=== PATIENT | male | born 2000 ===

== ENCOUNTER 2024-10-02 23:52 | Inpatient (IN) | payer OTHER ==
[~2024-10-02] VITALS: Ht 167.6 cm; Wt 86.9 kg
[2024-10-03 01:12] LABS: BASOPHILS % (AUTO) 0.7 % (0.0-2.0); EOSINOPHILS % (AUTO) 1.3 % (1.0-6.0); HEMATOCRIT 43.9 % (41-53); HEMOGLOBIN 15.4 g/dL (13.5-17.5); LYMPHOCYTES # (AUTO) 2.1 K/uL (1.0-4.8); LYMPHOCYTES % (AUTO) 26.4 % (22.0-44.0); MEAN CORPUSCULAR HEMOGLOBIN 30.5 pg (26.0-34.0); MEAN CORPUSCULAR HGB CONC 35.1 G/dL (31.0-37.0); MEAN CORPUSCULAR VOLUME 87 fL (80-100); MONOCYTES # (AUTO) 0.5 K/uL (0.1-1.0); MONOCYTES % (AUTO) 6.4 % (2.0-9.0); NEUTROPHILS # (AUTO) 5.2 K/uL (1.8-7.7); NEUTROPHILS % (AUTO) 65.2 % (40.0-70.0); PLATELET COUNT (AUTO) 246 K/uL (150-450); RED BLOOD CELL COUNT(AUTO) 5.04 MIL/uL (4.50-5.90); RED CELL DISTRIBUTION WIDTH 12.7 % (11.5-14.5)
[2024-10-03 01:21] LABS: ANION GAP 10 mmol/L (8-16); CALCIUM, TOTAL 8.9 mg/dL (8.8-10.5); CARBON DIOXIDE 29 mmol/L (22-29); CHLORIDE 101 mmol/L (98-107); CREATININE 1.04 mg/dL (0.60-1.30); GLOMERULAR FILTR. RATE CALC > 60 mL/min (>60); GLUCOSE,RANDOM 94 mg/dL (70-110); POTASSIUM 4.2 mmol/L (3.5-5.1); SODIUM SERUM 140 mmol/L (136-145); UREA NITROGEN, BLOOD 16 mg/dL (7-18)
[2024-10-03 01:23] LABS: ALCOHOL, BLOOD (SERUM) < 3 mg/dL (0-10)
[2024-10-03] MEDS ORDERED: ONDANSETRON HCL 4 MG/2 ML VIAL IVP PRN (02:15)
[2024-10-03] MEDS ORDERED: HydrOXYzine HCL 25 MG TABLET PO PRN (02:15)
[2024-10-03] MEDS ORDERED: ACETAMINOPHEN 325 MG TABLET PO PRN (02:15)
[2024-10-03 03:09] VITALS: BP 117/65; PULSE 56; RESP 18; TEMP 98.3; O2SAT 100
[2024-10-03 08:27] VITALS: BP 109/68; PULSE 59; RESP 18; TEMP 98.2; O2SAT 100
[2024-10-03] MEDS: HEPARIN SODIUM,PORCINE 5,000 UNITS/ML VIAL SQ SCH (08:57)
[2024-10-03] MEDS: DOCUSATE SODIUM 100 MG CAPSULE PO SCH (08:58)
[2024-10-03] MEDS: KETOROLAC TROMETHAMINE 15 MG/ML VIAL IVP PRN (08:59)
[2024-10-03 16:37] LABS: ALCOHOL, URINE DRUG SCREEN NEGATIVE (NEGATIVE); AMPHET/METH SCREEN,URINE POSITIVE (NEGATIVE); BARBITURATE SCREEN, URINE NEGATIVE (NEGATIVE); BENZODIAZEPINES SCREEN,URINE NEGATIVE (NEGATIVE); CANNABINOID SCREEN,URINE NEGATIVE (NEGATIVE); COCAINE SCREEN,URINE NEGATIVE (NEGATIVE); METHADONE SCREEN, URINE NEGATIVE (NEGATIVE); OPIATE SCREEN,URINE NEGATIVE (NEGATIVE); PHENCYCLIDINE SCREEN,URINE NEGATIVE (NEGATIVE)
[2024-10-03 20:35] VITALS: BP 110/54; PULSE 61; RESP 18; TEMP 98.1; O2SAT 97
[2024-10-04 05:10] VITALS: BP 105/58; PULSE 61; RESP 19; TEMP 98; O2SAT 100
[2024-10-04 07:34] LABS: BASOPHILS % (AUTO) 0.5 % (0.0-2.0); HEMATOCRIT 40.1 % (41-53); HEMOGLOBIN 13.9 g/dL (13.5-17.5); LYMPHOCYTES # (AUTO) 2.9 K/uL (1.0-4.8); LYMPHOCYTES % (AUTO) 44.8 % (22.0-44.0); MEAN CORPUSCULAR HEMOGLOBIN 29.8 pg (26.0-34.0); MEAN CORPUSCULAR HGB CONC 34.6 G/dL (31.0-37.0); MEAN CORPUSCULAR VOLUME 86 fL (80-100); MONOCYTES # (AUTO) 0.5 K/uL (0.1-1.0); MONOCYTES % (AUTO) 7.6 % (2.0-9.0); NEUTROPHILS # (AUTO) 2.9 K/uL (1.8-7.7); NEUTROPHILS % (AUTO) 44.1 % (40.0-70.0); PLATELET COUNT (AUTO) 202 K/uL (150-450); RED BLOOD CELL COUNT(AUTO) 4.65 MIL/uL (4.50-5.90); RED CELL DISTRIBUTION WIDTH 12.2 % (11.5-14.5); WHITE BLOOD COUNT (AUTO) 6.6 K/uL (4.5-11.0)
[2024-10-04 07:43] LABS: ANION GAP 4 mmol/L (8-16); CALCIUM, TOTAL 8.3 mg/dL (8.8-10.5); CARBON DIOXIDE 32 mmol/L (22-29); CHLORIDE 105 mmol/L (98-107); CREATININE 0.92 mg/dL (0.60-1.30); GLOMERULAR FILTR. RATE CALC > 60 mL/min (>60); GLUCOSE,RANDOM 84 mg/dL (70-110); POTASSIUM 4.1 mmol/L (3.5-5.1); SODIUM SERUM 141 mmol/L (136-145); UREA NITROGEN, BLOOD 17 mg/dL (7-18)
[2024-10-04 08:04] VITALS: BP 101/50; PULSE 53; RESP 18; TEMP 98.4; O2SAT 100
[2024-10-04] MEDS: HydrOXYzine PAMOATE 25 MG CAPSULE PO PRN (08:24)
[2024-10-04] MEDS ORDERED: METOCLOPRAMIDE HCL 5 MG/ML 2 ML VIAL IVP PRN (11:45)
[2024-10-04] MEDS ORDERED: LOPERAMIDE HCL 2 MG CAPSULE PO PRN (11:45)
[2024-10-04] MEDS ORDERED: ACETAMINOPHEN 325 MG TABLET PO PRN (17:15)
[2024-10-04 19:30] VITALS: BP 116/51; PULSE 62; RESP 18; TEMP 98.3; O2SAT 99
[2024-10-04] MEDS: TEMAZEPAM 15 MG CAPSULE PO SCH (20:17)
[2024-10-05 04:37] VITALS: BP 99/60; PULSE 56; RESP 18; TEMP 98.3; O2SAT 99
[2024-10-05 07:40] VITALS: BP 106/51; PULSE 54; RESP 18; TEMP 98.3; O2SAT 99
[2024-10-05 15:44] VITALS: BP 107/53; PULSE 51; RESP 18; TEMP 97.9; O2SAT 99
[2024-10-05 20:25] VITALS: BP 111/51; PULSE 61; RESP 18; TEMP 97.8; O2SAT 96
[2024-10-06] MEDS: LORazepam 2 MG/ML VIAL IVP PRN (02:27)
[2024-10-06 04:50] VITALS: BP 118/53; PULSE 58; RESP 18; TEMP 98.3; O2SAT 99
[2024-10-06 08:18] VITALS: BP 117/64; PULSE 53; RESP 18; TEMP 98.6; O2SAT 99
[2024-10-06 17:12] VITALS: BP 118/64; PULSE 66; RESP 16; TEMP 98.4; O2SAT 100
[2024-10-06 20:22] VITALS: BP 131/71; PULSE 71; RESP 17; TEMP 98.3; O2SAT 100
[2024-10-07 04:53] VITALS: BP 108/58; PULSE 61; RESP 18; TEMP 98.4; O2SAT 96
[2024-10-07 08:09] VITALS: BP 127/82; PULSE 64; RESP 18; TEMP 98.2; O2SAT 100
[2024-10-07] MEDS: DICYCLOMINE HCL 10 MG CAPSULE PO PRN (09:24)
[2024-10-07] MEDS ORDERED: TEMA15CA PO (10:59)
[2024-10-07] MEDS ORDERED: ACET-2247 PO (11:00)
[2024-10-07] MEDS ORDERED: HYDR-4527 PO (11:01)
== END 2024-10-07 19:44 | DRG 897 ==
LOC: EMS 23:57 → EDH 10-03 02:25 → 6S 10-03 03:07
PROVIDERS: ADMIT Internal Medicine; ATTEND Internal Medicine
DX: F11.93 Opioid use, unspecified with withdrawal (principal); F15.10 Other stimulant abuse, uncomplicated; F10.10 Alcohol abuse, uncomplicated; F17.200 Nicotine dependence, unspecified, uncomplicated; F41.1 Generalized anxiety disorder; Z90.49 Acquired absence of other specified parts of digestive tract
CPT/HCPCS: 80048; 80307; 83735; 85025; 99285; G0480; J1644; J1885; J2060; 36415-L1; 36415-TC; Z7502; Z7610